=== PATIENT | female | born 1990 | race African-American/Black ===

== ENCOUNTER 2017-03-31 00:31 | Emergency (ER) | payer OTHER ==
[2017-03-31 01:00] VITALS: TEMP 98.2; BMI 17.8
--- NOTE | 2017-03-31 01:10 | PDOC ---
History of Present Illness - History of Present Illness Initial Comments: 03/31/17 01:33 Patient is a 27 year old female with no significant medical hx who is presenting to the ED complaining of pelvic discomfort and vaginal discharge for three days. Patient complains of feeling swelling to her pelvis since her menses ended several days ago. She notes that at first she felt a numbness sensation to her pelvis and then developed a swelling sensation. The patient also reports some associated watery discharge. She notes that her discomfort became so severe she had difficulty sleeping on her left side. Denies fever, chills, nausea, vomiting, diarrhea, or urinary complaints. Patient is sexually active and not on control. She states that shes been with the same partner for the past several years. LNMP: 03/25/17 NKDA <Reba Gonsalves - Last Filed: 03/31/17 01:33> <Yi Avalos - Last Filed: 03/31/17 03:21> - General Chief Complaint: Pain Stated Complaint: ABD PAIN Past History <Reba Gonsalves - Last Filed: 03/31/17 01:33> - Past Medical History Asthma: No Cancer: No Cardiac Disorders: No Diabetes: No HTN: No Seizures: No Thyroid Disease: No - Psycho/Social/Smoking Cessation Hx Suicidal Ideation: No Smoking History: Never smoked Have you smoked in the past 12 months: No Hx Alcohol Use: No Drug/Substance Use Hx: No Hx Substance Use Treatment: No <Yi Avalos - Last Filed: 03/31/17 03:21> - Past Medical History Allergies/Adverse Reactions: Allergies Allergy/AdvReac Type Severity Reaction Status Date / Time No Known Drug Allergies Allergy Verified 01/10/14 06:17 Home Medications: Ambulatory Orders Sulfamethoxazole/Trimethoprim [Bactrim Ds -] 1 tab PO BID #14 tablet 03/31/17 Review of Systems - Review of Systems Comments:: 03/31/17 01:34 CONSTITUTIONAL: Absent: fever, chills, diaphoresis, generalized weakness, malaise, loss of appetite HEENT: Absent: rhinorrhea, nasal congestion, throat pain, throat swelling, difficulty swallowing, mouth swelling, ear pain, eye pain, visual changes CARDIOVASCULAR: Absent: chest pain, syncope, palpitations, irregular heart rate, lightheadedness , peripheral edema RESPIRATORY: Absent: cough, shortness of breath, dyspnea with exertion, orthopnea, wheezing, stridor, hemoptysis GASTROINTESTINAL: Present: pelvic discomfort with numbness and "swelling" sensation Absent: abdominal distension, nausea, vomiting, diarrhea, constipation, melena, hematochezia GENITOURINARY: Present: vaginal discharge Absent: dysuria, frequency, urgency, hesitancy, hematuria, flank pain MUSCULOSKELETAL: Absent: myalgia, arthralgia, joint swelling SKIN: Absent: rash, itching, pallor HEMATOLOGIC/IMMUNOLOGIC: Absent: easy bleeding, easy bruising, lymphadenopathy, frequent infections ENDOCRINE: Absent: unexplained weight gain, unexplained weight loss, heat intolerance, cold intolerance NEUROLOGIC: Absent: headache, focal weakness or paresthesia, dizziness, unsteady gait, seizure, mental status changes, bladder or bowel incontinence. PSYCHIATRIC: Absent: anxiety, depression, suicidal or homicidal ideation, hallucinations <Reba Gonsalves - Last Filed: 03/31/17 01:33> *Physical Exam - Vital Signs Last Vital Signs Temp Pulse Resp BP Pulse Ox 98.2 F 99 H 16 110/75 99 03/31/17 00:59 03/31/17 00:59 03/31/17 00:59 03/31/17 00:59 03/31/17 00:59 - Physical Exam Comments: 03/31/17 01:35 GENERAL: Well developed, well nourished. Awake and alert. No acute distress. HEENT: Normocephalic, atraumatic. PERRLA, EOMI. No conjunctival pallor. Sclera are non- icteric. Moist mucous membranes. Oropharynx is clear. NECK: Supple. Full ROM. No JVD. Carotid pulses 2+ and symmetric, without bruits. No thyromegaly. No lymphadenopathy. CARDIOVASCULAR: Regular rate and rhythm. No murmurs, rubs, or gallops. Distal pulses are 2+ and symmetric. PULMONARY: No evidence of respiratory distress. Lungs clear to auscultation bilaterally. No wheezing, rales or rhonchi. ABDOMINAL: Soft. Non-tender. Non-distended. No rebound or guarding. No organomegaly. Normoactive bowel sounds. MUSCULOSKELETAL: Normal range of motion at all joints. No bony deformities or tenderness. No CVA tenderness. EXTREMITIES: No cyanosis. No clubbing. No edema. No calf tenderness. SKIN: Warm and dry. Normal capillary refill. No rashes. No jaundice. NEUROLOGICAL: Alert, awake, appropriate. Cranial nerves 2-12 intact. Normal speech. Gait is normal without ataxia. PSYCHIATRIC: Cooperative. Good eye contact. Appropriate mood and affect. VAGINAL: Draining abscess to the left of the introitus and yellow discharge. <Reba Gonsalves - Last Filed: 03/31/17 01:33> - Vital Signs Last Vital Signs Temp Pulse Resp BP Pulse Ox 98.2 F 99 H 16 110/75 99 03/31/17 00:59 03/31/17 00:59 03/31/17 00:59 03/31/17 00:59 03/31/17 00:59 <Yi Avalos - Last Filed: 03/31/17 03:21> Medical Decision Making - Medical Decision Making 03/31/17 03:18 27-year-old female who is now , presents with complaint of vaginal discharge On exam, she is found to have a draining abscess on her external genitalia and some thick discharge UA was negative for UTI. Negative test. Patient is sexually active and does not use contraception .CONCERN FOR STD SO PT WAS TREATED EMPIRICALLY FOR GC,CHLAMYDIA Patient treated empirically for GC and chlamydia GIVEN ROCEPHIN AND zithromaz <Yi Avalos - Last Filed: 03/31/17 03:21> *DC/Admit/Observation/Transfer - Attestations Scribe Attestion: 03/31/17 01:36 Documentation prepared by Reba Gonsalves, acting as medical physics researcher for Yi Avalos MD. <Reba Gonsalves - Last Filed: 03/31/17 01:33> <Yi Avalos - Last Filed: 03/31/17 03:21> Diagnosis at time of Disposition: Abscess, Vaginal discharge - Discharge Dispostion Disposition: HOME Condition at time of disposition: Stable - Prescriptions Prescriptions: Sulfamethoxazole/Trimethoprim [Bactrim Ds -] 1 tab PO BID #14 tablet - Patient Instructions Printed Discharge Instructions: DI for Skin Abscess, DI for Vaginal Discharge Additional Instructions: PLEASE FOLLOWUP WITH YOUR [employer] OPEN STACK ADMINISTRATOR MAILING CLERK YOUR MEDICATIONS AT YOUR [facility]ARM[facility]Y
[2017-03-31] MEDS ORDERED: LIDOCAINE HCL 1%, 10 MG/ML (50 mL VIAL) SQ STA (01:26)
[2017-03-31] MEDS ORDERED: AZITHROMYCIN 1 GM PACKET PO ONE (01:30)
[2017-03-31] MEDS ORDERED: FLUCONAZOLE 100 MG TABLET (UD) PO ONE (01:30)
[2017-03-31] MEDS ORDERED: FLUCONAZOLE 100 MG TABLET (UD) ONE (01:35)
[2017-03-31] MEDS ORDERED: LIDOCAINE HCL/PF 1% SDV 5ML VIAL ONE (01:35)
[2017-03-31] MEDS ORDERED: AZITHROMYCIN 250 MG TABLET (FP) ONE (01:35)
[2017-03-31 01:48] LABS: URINE APPEARANCE SLCLOUDY; URINE BILIRUBIN NEGATIVE (NEGATIVE); URINE COLOR DKYELLOW; URINE GLUCOSE (UA) NEGATIVE (NEGATIVE); URINE KETONE TRACE (NEGATIVE); URINE NITRITE NEGATIVE (NEGATIVE); URINE PROTEIN NEGATIVE (NEGATIVE); URINE UROBILINOGEN NEGATIVE mg/dL (0.2-1.0)
[2017-03-31 01:52] LABS: URINE BLOOD 2+ (NEGATIVE); URINE LEUK ESTERASE 3+ (NEGATIVE)
[2017-03-31 02:00] LABS: URINE BACTERIA FEW /hpf (NONE SEEN); URINE HYALINE CAST 2 /lpf; URINE MUCUS MANY; URINE RBC 39 /hpf (0-3); URINE WBC 36 /hpf (3-5)
[2017-03-31 03:05] VITALS: BP 107/75; PULSE 89
== END 2017-03-31 03:02 | disposition home or self-care (01) ==
LOC: JER 00:31
DX: N89.8 Other specified noninflammatory disorders of vagina (principal); N76.0 Acute vaginitis
CPT/HCPCS: 36415; 81003; 81015; 84703; 87491; 87591; 99281-25

== ENCOUNTER 2018-01-29 16:07 | Emergency (ER) | payer SELFPAY ==
[2018-01-29 16:18] VITALS: BP 127/72; PULSE 99; TEMP 99; BMI 18.2
[2018-01-29 17:09] LABS: HCG,QUALITATIVE URINE NEGATIVE; URINE APPEARANCE SLCLOUDY; URINE BILIRUBIN NEGATIVE (<2.0 mg/dL); URINE COLOR YELLOW; URINE GLUCOSE (UA) NEGATIVE (NEGATIVE); URINE KETONE NEGATIVE (NEGATIVE); URINE LEUK ESTERASE 3+ (NEGATIVE); URINE NITRITE NEGATIVE (NEGATIVE); URINE PROTEIN NEGATIVE (NEGATIVE); URINE UROBILINOGEN NEGATIVE mg/dL (0.2-1.0)
[2018-01-29 17:11] LABS: EPI CELLS FEW /HPF (FEW); URINE BACTERIA RARE /hpf (NONE SEEN); URINE MUCUS FEW
--- NOTE | 2018-01-29 17:24 | PDOC ---
History of Present Illness - General Chief Complaint: Vaginal Sxs Stated Complaint: INTERNAL SWELLING Time Seen by Provider: 01/29/18 16:29 History Source: Patient Exam Limitations: No Limitations - History of Present Illness Initial Comments: 01/29/18 17:47 Patient is a 28-year-old female with past medical history of Bartholin's cysts, who presents emergency department today complaining that she feels a bump inside her vagina. She states that she has seen her INSIDE SALES ADVISOR for this issue and was placed on Depo-Provera. She is due for another Depo shot in 1 week. She has not had a bump since the Depo. She states that it hurts to stand and sit for long periods of time. Denies fevers, chills, pain with urination, nausea, vomiting and diarrhea. Patient is sexually active with one partner, not concerned for STDs at this time. Past History - Travel Traveled outside of the country in the last 30 days: No Close contact w/someone who was outside of country & ill: No - Past Medical History Allergies/Adverse Reactions: Allergies Allergy/AdvReac Type Severity Reaction Status Date / Time No Known Drug Allergies Allergy Verified 01/29/18 16:18 Home Medications: Ambulatory Orders Sulfamethoxazole/Trimethoprim [Bactrim Ds Tablet] 1 each PO BID #14 tablet 01/29 Asthma: No Cancer: No Cardiac Disorders: No COPD: No Diabetes: No HTN: No Seizures: No Thyroid Disease: No - Suicide/Smoking/Psychosocial Hx Smoking History: Never smoked Have you smoked in the past 12 months: No Hx Alcohol Use: No Drug/Substance Use Hx: No Hx Substance Use Treatment: No Review of Systems - Review of Systems Able to Perform ROS?: Yes Comments:: 01/29/18 17:48 CONSTITUTIONAL: Absent: fever, chills, diaphoresis, generalized weakness, malaise, loss of appetite GENITOURINARY: Present: genital pain/swelling Absent: dysuria, frequency, urgency, hesitancy, hematuria, flank pain SKIN: Absent: rash, itching, pallor NEUROLOGIC: Absent: headache, focal weakness or paresthesias, dizziness, unsteady gait, seizure, mental status changes, bladder or bowel incontinence Is the patient limited Bruneian proficient: No *Physical Exam - Vital Signs Last Vital Signs Temp Pulse Resp BP Pulse Ox 99 F 99 H 18 127/72 100 01/29/18 16:16 01/29/18 16:16 01/29/18 16:16 01/29/18 16:16 01/29/18 16:16 - Physical Exam Comments: 01/29/18 17:49 GENERAL: Well developed, well nourished. Awake and alert. No acute distress. : External exam with grape sized bartholin cyst on the L external labia. TTP. No discharge or foul odor. Internal exam deferred d/t pt preference and pain. SKIN: Warm and dry. Normal capillary refill. No rashes. No jaundice. NEUROLOGICAL: Alert, awake, appropriate. Cranial nerves 2-12 intact. No deficits to light touch and temperature in face, upper extremities and lower extremities. No motor deficits in the in face, upper extremities and lower extremities. Normoreflexic in the upper and lower extremities. Normal speech. Toes are down- going bilaterally. Gait is normal without ataxia. PSYCHIATRIC: Cooperative. Good eye contact. Appropriate mood and affect. Procedures - Incision and Drainage I&D Site: Left: Bartholin Betadine cleansed: Yes Anesthesia: 1% Lidocaine Volume(ml): 4 Blade Size: 11 Attempts: 1 Iodinated Packin/2 in Dressing: Yes ED Treatment Course - ADDITIONAL ORDERS Additional order review: Laboratory Results 01/29/18 17:00 Urine Color Yellow Urine Appearance Slcloudy Urine pH 5.0 Ur Specific [place] 1.026 Urine Protein Negative Urine Glucose (UA) Negative Urine Ketones Negative Urine Blood Negative Urine Nitrite Negative Urine Bilirubin Negative Urine Urobilinogen Negative Ur Leukocyte Esterase 3+ H Urine HCG, Qual Negative Medical Decision Making - Medical Decision Making 01/29/18 19:38 Patient is a 28-year-old female who presents emergency department with an infected Bartholin's cyst. I&D performed. See procedure note below. Plain packing placed as Word's catheter are not available at this time. Return precautions given and patient told to follow-up in the emergency department in 2 days.. Patient started on Bactrim. Patient understand all discharge instructions and all questions were answered. Verbal consent obtained. The L bartholin's cyst was prepared with Betadine prior to incision. 4 mL of lidocaine used to numb the site. Approximately 1-1/2 cm incision made at the anterior aspect of the abscess for drainage. Large amount of pus and blood was drained from the site. Wound culture was taken. Area was explored and loculations were broken up. The abscess was then flushed with 20 mL of normal saline. Iodinated packing was placed. *DC/Admit/Observation/Transfer Diagnosis at time of Disposition: Bartholin's gland cyst - Discharge Dispostion Disposition: HOME Condition at time of disposition: Stable Decision to Admit order: No - Referrals Referrals: Lizeth Pope MD [Staff Physician] - - Patient Instructions Printed Discharge Instructions: DI for Bartholin Gland Cyst Additional Instructions: You had your bartholin's cyst drained today. There is packing in place. Please return in 2 days to have the packing removed if he cannot follow up with her INSIDE SALES ADVISOR before then. Please take the Bactrim twice a day for one week to help prevent infection. Gently wipe and cleansed the area avoid moving the packing. Return to emergency department if you have worsening pain, fevers, chills, or have any changes in your symptoms. - Post Discharge Activity
== END 2018-01-29 19:42 | disposition home or self-care (01) ==
LOC: JERFT 16:07
PROC: 0U9L0ZZ Drainage of Vestibular Gland, Open Approach (ICD-10-PCS; principal; 2018-01-29)
DX: N75.0 Cyst of Bartholin's gland (principal)
CPT/HCPCS: 36415; 81003; 81015; 84703; 87070; 87077; 87086; 87205; 87491; 87591; 99281-25

== ENCOUNTER 2019-05-25 17:04 | Emergency (ER) | payer OTHER ==
[2019-05-25 17:24] VITALS: TEMP 98.7; BMI 21.9
--- NOTE | 2019-05-25 17:26 | PDOC ---
Rapid Medical Evaluation Chief Complaint: Pain Time Seen by Provider: 05/25/19 17:22 Medical Evaluation: Allergies Allergy/AdvReac Type Severity Reaction Status Date / Time No Known Drug Allergies Allergy Verified 05/25/19 17:21 05/25/19 17:22 29 year old 12 week female c/o bartholin cyst now with increased pain to the area and pelvic pain PE: patient alert gravid abdomen A: bartholin cyst P: ua urine culture US \ 05/25/19 17:25 Discharge Disposition - Diagnosis Bartholin's gland cyst, Pelvic pain - Referrals - Patient Instructions - Post Discharge Activity
[2019-05-25 18:10] LABS: EPI CELLS 16.4 /HPF (0-5/HPF); HYALINE CASTS 11 /lpf (0-8); PH,URINE 5.5 (5.0-8.0); URINE APPEARANCE CLOUDY; URINE BACTERIA 208.7 /hpf (NEGATIVE); URINE BILIRUBIN NEGATIVE (NEGATIVE); URINE COLOR YELLOW; URINE GLUCOSE (UA) NEGATIVE (NEGATIVE); URINE KETONE NEGATIVE (NEGATIVE); URINE LEUK ESTERASE 1+ (NEGATIVE); URINE NITRITE NEGATIVE (NEGATIVE); URINE PROTEIN NEGATIVE (NEGATIVE); URINE RBC 1 /hpf (0-4); URINE UROBILINOGEN 0.2 mg/dL (0.2-1.0); URINE WBC 9 /hpf (0-5)
[2019-05-25] MEDS ORDERED: AZITHROMYCIN 250 MG TABLET PO ONE (19:22)
[2019-05-25] MEDS ORDERED: AZITHROMYCIN 250 MG TABLET ONE (19:54)
--- NOTE | 2019-05-25 19:56 | PDOC ---
History of Present Illness - General Chief Complaint: Pain Stated Complaint: ABD CRAMPS Time Seen by Provider: 05/25/19 17:22 History Source: Patient Exam Limitations: No Limitations Past History - Past Medical History Allergies/Adverse Reactions: Allergies Allergy/AdvReac Type Severity Reaction Status Date / Time No Known Drug Allergies Allergy Verified 05/25/19 17:21 Home Medications: Ambulatory Orders Sulfamethoxazole/Trimethoprim [Bactrim Ds Tablet] 1 each PO BID #14 tablet 01/29 Azithromycin [Zithromax 250mg Tablets -] 250 mg PO UTDICT #6 tab 05/25/19 Asthma: No Cancer: No Cardiac Disorders: No COPD: No Diabetes: No HTN: No Seizures: No Thyroid Disease: No - Reproductive History (#): 2 Para: 1 - Immunization History Immunization Up to Date: Yes - Suicide/Smoking/Psychosocial Hx Smoking History: Never smoked Have you smoked in the past 12 months: No Hx Alcohol Use: No Drug/Substance Use Hx: No Hx Substance Use Treatment: No *Physical Exam - Vital Signs Last Vital Signs Temp Pulse Resp BP Pulse Ox 98.7 F 109 H 18 114/73 97 05/25/19 17:22 05/25/19 17:22 05/25/19 17:22 05/25/19 17:22 05/25/19 17:22 - Physical Exam General Appearance: No: Apparent Distress Respiratory/Chest: positive: Lungs Clear, Normal Breath Sounds. negative: Respiratory Distress Cardiovascular: positive: Regular Rhythm, Regular Rate, S1, S2. negative: Murmur Female Pelvic Exam: positive: other (+L bartholin abscess) Gastrointestinal/Abdominal: positive: Other (gravid abdomen) Neurologic: positive: Alert, Normal Mood/Affect ED Treatment Course - ADDITIONAL ORDERS Additional order review: Laboratory Results 05/25/19 17:53 Urine Color Yellow Urine Appearance Cloudy Urine pH 5.5 Ur Specific [place] 1.021 Urine Protein Negative Urine Glucose (UA) Negative Urine Ketones Negative Urine Blood Negative Urine Nitrite Negative Urine Bilirubin Negative Urine Urobilinogen 0.2 Ur Leukocyte Esterase 1+ H Urine WBC (Auto) 9 Urine RBC (Auto) 1 Urine Casts (Auto) 11 U Epithel Cells (Auto) 16.4 Urine Bacteria (Auto) 208.7 Medical Decision Making - Medical Decision Making 29 y/o F presents with concern for L bartholin cyst/abscess x 3 days. Patient has had them in the past. Normally, states they drain on their own with Sitz bath, but is finding it difficult to perform Sitz bath due to her . Mentions in the past, she got ?topical cream which helped but unable to recall name. Also has minimal lower abdominal cramping which she states she normally gets with the cyst. Denies fever, sob, cp, vomiting, urinary complaints , vaginal bleeding. OB US - confirms at 12 weeks L bartholin cyst - patient refused to have I&D done (states she is scared of having it done) Spoke to patient's CARDER BLANKETS, - advised to place patient on Azithromycin for now and have pt f/u with her tomorrow morning stable for dc 05/25/19 19:51 *DC/Admit/Observation/Transfer Diagnosis at time of Disposition: Bartholin's gland cyst - Discharge Dispostion Disposition: HOME Condition at time of disposition: Stable Decision to Admit order: No - Prescriptions Prescriptions: Azithromycin [Zithromax 250mg Tablets -] 250 mg PO UTDICT #6 tab - Referrals Referrals: Eliane Jean DO [Staff Physician] - 24 hours - Patient Instructions Printed Discharge Instructions: Bartholin Gland Cyst Additional Instructions: Thank you for choosing [facility]. It was a pleasure taking care of you. You have Bartholin abscess which needs to be drained Please take antibiotics as directed Take Tylenol as needed for pain Follow-up with your CARDER BLANKETS tomorrow for evaluation of the abscess Return to the Emergency Department if your symptoms worsen or persist or have other concerning symptoms. - Post Discharge Activity
[2019-05-25 20:34] VITALS: BP 119/76; PULSE 100
== END 2019-05-25 20:15 | disposition home or self-care (01) ==
LOC: JER 17:04
DX: N75.0 Cyst of Bartholin's gland (principal); O26.891 Other specified pregnancy related conditions, first trimester; Z3A.12 12 weeks gestation of pregnancy
CPT/HCPCS: 76801-TC; 81003; 87086; 99283-25